=== PATIENT | male | born 1945 | race African-American/Black ===

== ENCOUNTER 2016-12-25 09:08 | Emergency (ER) | payer OTHER ==
[~2016-12-25] VITALS: Ht 180.3 cm; Wt 83.0 kg
[~2016-12-25 09:08] MED LIST: AZIT250T94 PO; CELE200C PO; D-ME473S2 PO; MELO7.5O PO; RANI150C11 PO; SIMVASTATIN PO
[2016-12-25 09:24] VITALS: Ht 180.3 cm; Wt 83.0 kg
[2016-12-25] MEDS ORDERED: KETOROLAC 30 MG INJ IM STA (10:04)
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
[2016-12-25] MEDS ORDERED: predniSONE 20 MG TAB PO ONE (10:30)
[2016-12-25 10:32] LABS: URINE BLOOD (Dip) POC Negative (NEGATIVE)
--- NOTE | 2016-12-25 12:36 | RADRPT ---
PROCEDURE: XR Lumbar Spine. CLINICAL INDICATION: Back pain. TECHNIQUE: Lumbar spine x-rays, 3 views. COMPARISON: 02/04/2014. FINDINGS: Bone density appears normal. Vertebral body heights are normal. L3-L5 posterior spinal fusion hard singh with intervening disk spacers are in place. Vertebral body alignment is well maintained. Inte rvertebral disk heights are within normal limits. Mild endplate sclerosis is observed at the lumbos acral junction. Paravertebral soft tissues are unremarkable. Abdominal aortic atherosclerotic calc ification is observed. IMPRESSION: Surgical changes compatible with L3-L5 posterior spinal fusion without evidence of hardware complica tion. Abdominal aortic atherosclerosis. RPTAT: [facility] .Batsheva Javed MD, MD Date Time Electronically viewed and signed by .Batsheva Javed MD, on 12/25/2016 12:36 .T/
[2016-12-25] MEDS ORDERED: NAPR-260 PO (12:46)
[2016-12-25] MEDS ORDERED: PRED20TA PO (12:47)
[2016-12-25 12:54] VITALS: BP 112/64; PULSE 88; RESP 20; TEMP 98.3
== END 2016-12-25 12:55 | disposition home or self-care (01) ==
LOC: FTE 09:08
DX: S39.92XA Unspecified injury of lower back, initial encounter (principal); E11.9 Type 2 diabetes mellitus without complications; X50.0XXA Overexertion from strenuous movement or load, initial encounter; Y92.22 Religious institution as the place of occurrence of the external cause
CPT/HCPCS: 72100; 81003; 96372; 99284; J1885; J7512

== ENCOUNTER 2017-01-17 12:30 | Emergency (ER) | payer OTHER ==
[~2017-01-17] VITALS: Ht 180.3 cm; Wt 83.0 kg
[~2017-01-17 12:30] MED LIST changes: +NAPR-260 PO; +PRED20TA PO
[2017-01-17 12:37] VITALS: Ht 180.3 cm; Wt 83.0 kg
--- NOTE | 2017-01-17 12:48 | ERA ---
ER Documentation Chief Complaint Date/Time DATE: 01/17/17 TIME: 12:48 Chief Complaint bloody stools HPI The patient is a 71-year-old male, presenting to the ER because of bloody stool intermittently for the last 2 weeks, associated with constipation. He denies similar symptoms previously, denies syncope, near syncope, weakness, neck pain, chest pain, abdominal pain, vomiting, dysuria. He does not smoke nor drink, had a colonoscopy about a year ago that was unremarkable Past medical history: GERD, chronic low back pain, dextrocardia Past surgical history: Back ROS All systems reviewed and are negative except as per history of present illness. Medications Home Meds Active Scripts Hydrocortisone Acetate* (Anusol-HC*) 30 Gm Cream.gm., 1 APPLIC NC BID, #10 TUB Prov:ZAHIRA MARTINEZ MD 01/17/17 Prednisone* (Prednisone*) 20 Mg Tab, 40 MG PO DAILY for 4 Days, TAB Prov:TETE GASCA PA-C 12/25/16 Naproxen* (Naprosyn*) 500 Mg Tablet, 500 MG PO BID Y for PAIN AND/OR INFLAMMATION, #30 TAB Prov:TETE GASCA PA-C 12/25/16 Dextromethorphan Hb-Promethazine Hcl* (Promethazine DM* Syrup) 473 Ml Syrup, 5 ML PO Q6 Y for COUGH for 7 Days, ML Prov:AL HERNANDEZ MD 07/02/15 Azithromycin* (Zithromax*) 250 Mg Tablet, 250 MG PO .ZPACK DIRECTED, #6 TAB TAKE 500 MG (2 TABS) THE FIRST DAY THEN 250 MG (1 TAB) DAYS 2-5 Prov:AL HERNANDEZ MD 07/02/15 Reported Medications Meloxicam* (Meloxicam*) 7.5 Mg/5 Ml Oral.susp, 15 MG PO DAILY, ML 02/04/14 Ranitidine Hcl (Ranitidine Hcl) 150 Mg Capsule, 150 MG PO DAILY 06/07/13 Celecoxib* (Celebrex*) 200 Mg Capsule, 200 MG PO DAILY 06/07/13 [Simvastatin] No Conflict Check, 40 MG PO DAILY 06/07/13 Allergies Allergies: Coded Allergies: No Known Drug Allergy (Verified Allergy, Unknown, NONE, 02/04/14) PMhx/Soc History of Surgery: Yes (left shoulder; BILATERAL EYE SX) Anesthesia Reaction: No Hx Neurological Disorder: No Hx Respiratory Disorders: No Hx Cardiac Disorders: Yes (high cholesterol) Hx Psychiatric Problems: No Hx Miscellaneous Medical Probl: Yes (dm, acid reflux; HTN) Hx Alcohol Use: No Hx Substance Use: No Hx Tobacco Use: No Physical Exam Vitals Vital Signs Date Time Temp Pulse Resp B/P Pulse Ox O2 Delivery O2 Flow Rate FiO2 01/17/17 14:40 97.0 56 16 121/55 99 Room Air 01/17/17 12:37 96.6 63 16 96/62 99 Physical Exam Const: No acute distress. Head: Atraumatic. Eyes: Normal Conjunctiva. ENT: Normal External Ears, Nose and Mouth. Neck: Full range of motion. No meningismus. Resp: Clear to auscultation bilaterally. Cardio: Regular rate and rhythm. Abd: Soft, non distended, normal bowel sounds, non tender. Skin: No petechiae or rashes. Back: No midline or flank tenderness. Ext: No cyanosis, or edema. Neur: Awake and alert. No focal deficit Psych: Normal Mood and Affect. Rectal: Positive external hemorrhoids, nonbleeding Result Diagram: 01/17/17 1255 01/17/17 1255 Results 24 hrs Laboratory Tests Test 01/17/17 12:55 White Blood Count 6.510^3/ul Red Blood Count 4.5010^6/ul Hemoglobin 11.5g/dl Hematocrit 36.9% Mean Corpuscular Volume 82.0fl Mean Corpuscular Hemoglobin 25.6pg Mean Corpuscular Hemoglobin Concent 31.2g/dl Red Cell Distribution Width 15.4% Platelet Count 93163^3/UL Mean Platelet Volume 11.2fl Neutrophils % 45.3% Lymphocytes % 45.1% Monocytes % 7.4% Eosinophils % 1.4% Basophils % 0.5% Nucleated Red Blood Cells % 0.0/100WBC Neutrophils # (Manual) 310^3/ul Lymphocytes # 2.910^3/ul Monocytes # 0.510^3/ul Eosinophils # 0.110^3/ul Basophils # 0.010^3/ul Nucleated Red Blood Cells # 0.010^3/ul Prothrombin Time 12.1Sec Prothrombin Time Ratio 0.9 INR International Normalized Ratio 0.90 Activated Partial Thromboplast Time 24.9Sec Sodium Level 147mmol/L Potassium Level 4.8mmol/L Chloride Level 102mmol/L Carbon Dioxide Level 29mmol/L Anion Gap 21 Blood Urea Nitrogen 14mg/dl Creatinine 1.10mg/dl Glucose Level 105mg/dl Calcium Level 10.2mg/dl Total Bilirubin 0.2mg/dl Direct Bilirubin 0.00mg/dl Indirect Bilirubin 0.2mg/dl Aspartate Amino Transf (AST/SGOT) 25IU/L Alanine Aminotransferase (ALT/SGPT) 27IU/L Alkaline Phosphatase 80IU/L Total Protein 8.2g/dl Albumin 4.6g/dl Globulin 3.60g/dl Albumin/Globulin Ratio 1.27 Procedures/MDM MEDICAL MAKING DECISION: The patient is a 71-year-old male, presenting with acute hematochezia, most likely due to hemorrhoids. He is stable for outpatient follow-up The differential diagnoses considered include but are not limited to gastritis, peptic ulcer disease, esophageal varices, Noemi-Roach tear, carcinoma, polyp, hemorrhoid, fissure, diverticulosis, angiodysplasia. Departure Diagnosis: Primary Impression: Hematochezia Additional Impressions: Hemorrhoids Anemia Condition: Good Comments I discussed the findings with the patient. I advised the patient to follow-up with his family physician in about 1-2 days, sooner if needed and return if any concern. ZAHIRA MARTINEZ MD Jan 17, 2017 12:46
[2017-01-17 13:08] LABS: BASOPHILS % 0.5 % (0.0-2.0); EOSINOPHILS # 0.1 10^3/ul (0.0-0.5); EOSINOPHILS % 1.4 % (0.0-7.0); HEMATOCRIT 36.9 % (42.0-52.0); HEMOGLOBIN 11.5 g/dl (14.0-18.0); LYMPHOCYTES # 2.9 10^3/ul (0.8-2.9); LYMPHOCYTES % 45.1 % (15.0-51.0); MEAN CORPUSCULAR HEMOGLOBIN 25.6 pg (29.0-33.0); MEAN CORPUSCULAR HGB CONC 31.2 g/dl (32.0-37.0); MEAN PLATELET VOLUME 11.2 fl (7.4-10.4); MONOCYTE # 0.5 10^3/ul (0.3-0.9); MONOCYTES % 7.4 % (0.0-11.0); NEUTROPHILS % 45.3 % (39.0-77.0); PLATELET COUNT 248 10^3/UL (140-415); RED CELL DISTRIBUTION WIDTH 15.4 % (11.5-14.5); WHITE BLOOD COUNT 6.5 10^3/ul (4.8-10.8)
[2017-01-17 13:25] LABS: INR 0.9; PARTIAL THROMBOPLASTIN TIME 24.9 Sec (25.0-35.0); PROTIME 12.1 Sec (12.2-14.2); PT RATIO 0.9
[2017-01-17 13:26] LABS: BILIRUBIN,INDIRECT 0.2 mg/dl (0-1.1); BILIRUBIN,TOTAL 0.2 mg/dl (0.2-1.3); CALCIUM 10.2 mg/dl (8.4-10.2); CREATININE 1.1 mg/dl (0.61-1.24); POTASSIUM 4.8 mmol/L (3.5-5.1)
[2017-01-17 13:43] LABS: ALBUMIN 4.6 g/dl (3.3-4.9); ALBUMIN/GLOBULIN RATIO 1.27
[2017-01-17 13:48] LABS: TOTAL PROTEIN 8.2 g/dl (6.1-8.1)
[2017-01-17] MEDS ORDERED: HYDR30CR75 PR (14:26)
[2017-01-17 14:40] VITALS: BP 121/55; PULSE 56; RESP 16; TEMP 97
== END 2017-01-17 15:13 | disposition home or self-care (01) ==
LOC: E/R 12:30
DX: K92.1 Melena (principal); K64.4 Residual hemorrhoidal skin tags; D64.9 Anemia, unspecified; I10 Essential (primary) hypertension; E11.9 Type 2 diabetes mellitus without complications
CPT/HCPCS: 80053; 85025; 85610; 85730; 86850; 86900; 86901; 93005

== ENCOUNTER 2017-12-05 12:28 | Observation (INO) | END 2017-12-07 17:40 | disposition home or self-care (01) ==

== ENCOUNTER 2018-01-23 18:48 | Emergency (ER) | END 2018-01-23 19:08 | disposition left against medical advice (07) ==